=== PATIENT | male | born 1965 | race African-American/Black ===

== ENCOUNTER 2024-11-20 16:17 | Inpatient (IN) | payer OTHER ==
[~2024-11-20] VITALS: Ht 177.8 cm; Wt 116.9 kg
[2024-11-20] MEDS ORDERED: THIAMINE HCL 100 MG, FOLic ACID 5 MG/ML VIAL 1 MG, M.V.I. IV [ADULT] 10 ML in 0.9%NACL ... IV SCH (16:30)
[2024-11-20] MEDS ORDERED: PHARMACY COMMUNICATION MISC PRN ×2 (16:30→20:00)
[2024-11-20 16:42] LABS: IMMATURE GRANULOCYTE ABSOLUTE 0.02 K/uL (0-1); NUCLEATED RED BLOOD CELLS 0.0 % (0.0-0.19); PLATELET COUNT (AUTO) 170 K/uL (130-400); RED BLOOD CELL COUNT(AUTO) 5.04 MIL/uL (4.50-6.20); RED CELL DISTRIBUTION WIDTH 14.2 % (11.0-15.5); WHITE BLOOD COUNT (AUTO) 9.4 K/uL (4.8-10.8)
[2024-11-20 16:52] LABS: CREATININE 1.2 mg/dL (0.5-1.3); GLOMERULAR FILTR. RATE CALC 71 mL/min (>90); GLUCOSE,RANDOM 102 mg/dL (70-105); SODIUM SERUM 135 mmol/L (136-145); UREA NITROGEN, BLOOD 25 mg/dL (7-18)
[2024-11-20 17:14] LABS: ASPARTATE AMINOTRANSFERASE 88 U/L (10-37); TOTAL PROTEIN, SERUM 7.5 g/dL (6.0-8.3)
[2024-11-20 17:15] LABS: ALCOHOL, BLOOD < 3 mg/dL (0-10)
[2024-11-20 17:19] LABS: CREATINE KINASE, TOTAL 3765 U/L (21-232)
--- NOTE | 2024-11-20 17:19 | HMCIMG ---
EXAM: CT Head Without IV contrast. CLINICAL HISTORY: ams TECHNIQUE: Axial computed tomography images of the head/brain without intravenous contrast. COMPARISON: None provided. FINDINGS: BRAIN: No evidence of acute hemorrhage. No mass lesion. No CT evidence for acute territorial infarct. No midline shift or extra-axial collections. VENTRICLES: No hydrocephalus. ORBITS: The orbits are unremarkable. SINUSES AND MASTOIDS: The paranasal sinuses and mastoid air cells are clear. BONES: No fracture. SOFT TISSUES: Unremarkable. IMPRESSION: No acute intracranial abnormality. /[place]
[2024-11-20] MEDS ORDERED: COMPOUND IV REFRIGERATED 1 EACH IVSOLN MISC PRN (17:30)
[2024-11-20] MEDS: MULTIVITAMIN WITH MINERALS TABLET PO SCH (17:31)
--- NOTE | 2024-11-20 17:31 | ERN ---
General Chief Complaint: Other Problems Stated Complaint: SENT BY [facility] FOR THIAMINE INFUSIONS Time Seen by MD: 16:20 Source: patient History of Present Illness Initial Comments This is a 59-year-old gentleman coming in 10 by the [facility] for possible alcohol w ithdrawal. Per psychiatrist patient is to be admitted for alcohol withdrawal patient has been presenting with weakness and psychiatrist was concerned for encephalopathy secondary to Wernicke. Allergies: Coded Allergies: thioridazine (Unverified Allergy, Unknown, 11/20/24) Past Medical History Past Medical History: Diabetes-Type II, High Cholesterol, Hypertension, Schizophrenia Past Surgical History: None ROS Dictation CONSTITUTIONAL: No chills, no fever, weakness, no diaphoresis, no malaise. HEAD/FACE: No signs of trauma. EENT: No eye pain, no blurred vision, no tearing, no double vision, no ear pain, no ear discharge, no nose pain, no nasal congestion, no throat pain, no throat swelling, no mouth pain. RESPIRATORY: No cough, no orthopnea, no SOB, no stridor, no wheezing. CARDIOVASCULAR: No chest pain, no edema, no palpitations, no syncope. GASTROINTESTINAL/ABDOMINAL: No abdominal pain, no constipation, no diarrhea, no nausea, no vomiting. GENITOURINARY: No abnormal discharge, no dysuria, no frequent urination, no hematuria. No complaints of pain in the genitals. MUSCULOSKELETAL: No back pain, no gout, no joint pain, no joint swelling, no muscle pain, no muscle stiffness, no neck pain. INTEGUMENTARY: No change in color, no change in hair/nails, no dryness, no le lesa, no lumps, no rash. NEUROLOGICAL/PSYCH: No anxiety, not depressed, no emotional problem, no headache, no numbness, no pre-existing deficit, no history of seizures, no tremors, no weakness. HEMATOLOGIC/LYMPHATIC: Not anemic, no history of blood clots, no apparent bleeding, no bruising, glands not swollen. All Systems Negative, Except as Noted. Physical Exam Physical Exam Dictation VITAL SIGNS: Reviewed. GENERAL APPEARANCE: Alert, oriented x3, no acute distress, obese. HEAD AND FACE: Non-traumatic. EYES: PERRL, pink conjunctivas, eyelid no trauma, anterior chamber clear. EARS: Pinnas intact and no signs of trauma or erythema. Ear canals clear and no discharge. TMs no erythema. NOSE: No discharge, no bleeding. OROPHARYNX: Mouth normal, teeth no caries, tongue pink. Pharynx clear, no erythema. Tonsils no exudates, no abscesses noted. Mucous membrane moist. NECK: Supple, non-tender, no thyromegaly, no masses, no JVD, no bruits. BREAST: Deferred. CHEST: No tenderness, no crepitus, no paradoxical movement, no retractions. LUNGS: Clear, well-ventilated, symmetric, no rales, no wheezing, no rhonchi, no stridor, good breath sounds bilaterally. HEART: Regular rate, regular rhythm, no murmur, no gallops. VASCULAR: No peripheral edema. ABDOMEN: Soft, positive bowel sounds, nondistended, no guarding, nontender, no rebound, no masses no hepatomegaly, no splenomegaly, no Shine's sign, no hernias. RECTAL: Deferred. GENITAL: Deferred. NEUROLOGICAL: Normal speech, gross motor function intact, gross sensory function intact. MUSCULOSKELETAL: Neck nontender, full range of motion, back nontender, full range of motion. EXTREMITIES: Nontender, full range of motion. SKIN: Color pink, dry, no turgor, no rash, no lacerations, no abrasions, no contusions. LYMPHATICS: Deferred. Results Laboratory and Microbiology Lab and Micro Result Laboratory Tests Test 11/20/24 16:34 11/20/24 17:13 White Blood Count 9.4 K/uL (4.8-10.8) Red Blood Count 5.04 MIL/uL (4.50-6.20) Hemoglobin 14.4 g/dL (14.0-18.0) Hematocrit 42.6 % (42-54) Mean Corpuscular Volume 84.5 fL (79-99) Mean Corpuscular Hemoglobin 28.6 pg (27.0-33.0) Mean Corpuscular Hemoglobin Concent 33.8 g/dL (32.0-36.0) Red Cell Distribution Width 14.2 % (11.0-15.5) Platelet Count 170 K/uL (130-400) Mean Platelet Volume 10.7 fL (7.5-10.5) H Immature Granulocyte % (Auto) 0.2 % (0-1) Neutrophils (%) (Auto) 52.8 % (40.0-77.0) Lymphocytes (%) (Auto) 32.1 % (21.0-51.0) Monocytes (%) (Auto) 9.9 % (3.0-13.0) Eosinophils (%) (Auto) 4.4 % (0.0-8.0) Basophils (%) (Auto) 0.6 % (0.0-5.0) Neutrophils # (Auto) 5.0 K/uL (1.8-7.7) Lymphocytes # (Auto) 3.0 K/uL (1.0-4.8) Monocytes # (Auto) 0.9 K/uL (0.1-1.0) Eosinophils # (Auto) 0.41 K/uL (0.00-0.70) Basophils # (Auto) 0.06 K/uL (0.00-0.20) Absolute Immature Granulocyte (auto 0.02 K/uL (0-1) Nucleated Red Blood Cells 0.0 % (0.0-0.19) Sodium Level 135 mmol/L (136-145) L Potassium Level 3.8 mmol/L (3.5-5.1) Chloride Level 102 mmol/L (101-111) Carbon Dioxide Level 24 mmol/L (21-32) Blood Urea Nitrogen 25 mg/dL (7-18) H Creatinine 1.2 mg/dL (0.5-1.3) Glomerular Filtration Rate Calc 71 mL/min (>90) Random Glucose 102 mg/dL (70-105) Total Calcium 8.9 mg/dL (8.5-10.1) Magnesium Level 2.20 mg/dL (1.80-2.40) Total Bilirubin 0.4 mg/dL (0.2-1.0) Aspartate Amino Transf (AST/SGOT) 88 U/L (10-37) H Alanine Aminotransferase (ALT/SGPT) 78 U/L (12-78) Alkaline Phosphatase 68 U/L (50-136) Total Creatine Kinase 3765 U/L (21-232) *H Total Protein 7.5 g/dL (6.0-8.3) Albumin 3.6 g/dL (3.5-5.0) Lipase 50 U/L (16-77) Serum Alcohol < 3 mg/dL (0-10) Urine Color LIGHT-YELLOW (YELLOW) Urine Appearance CLEAR (CLEAR) Urine pH 5.0 (5.0-8.0) Urine Specific [place] 1.032 (1.001-1.031) Urine Protein NEGATIVE mg/dL (NEGATIVE) Urine Glucose (UA) >=1000 mg/dL (NEGATIVE) H Urine Ketones NEGATIVE mg/dL (NEGATIVE) Urine Occult Blood NEGATIVE (NEGATIVE) Urine Nitrate NEGATIVE (NEGATIVE) Urine Bilirubin NEGATIVE mg/dL (NEGATIVE) Urine Urobilinogen 0.2 mg/dL (0.2-1.0) Urine Leukocyte Esterase NEGATIVE Monserrat/uL Urine RBC 0-1 /HPF (0-1) Urine WBC 2-5 /HPF (0-1) H Urine Bacteria None /HPF (None Seen) Urine Hyaline Casts 2-5 /LPF (0-1 /LPF) H Labs Reviewed?: Yes EKG/XRAY/US/CT/MRI CT Scan Comment [id number] [address] IMAGING REPORT Signed PATIENT: SHERI GEE MR#: [id number] : 1965 SEX: M AGE: 59 LOCATION: [facility] ORDER 22 STATUS: [facility] REPORT#: [id number] SERVICE 22 REASON: ams ORDERING PHYSICIAN: MAXINE DUKE MD PROCEDURE: HEAD WO - CT HEAD/BRAIN W/O CONTRAST EXAM: CT Head Without IV contrast. CLINICAL HISTORY: ams TECHNIQUE: Axial computed tomography images of the head/brain without intravenous contrast. COMPARISON: None provided. FINDINGS: BRAIN: No evidence of acute hemorrhage. No mass lesion. No CT evidence for acute territorial infarct. No midline shift or extra-axial collections. VENTRICLES: No hydrocephalus. ORBITS: The orbits are unremarkable. SINUSES AND MASTOIDS: The paranasal sinuses and mastoid air cells are clear. BONES: No fracture. SOFT TISSUES: Unremarkable. IMPRESSION: No acute intracranial abnormality. /[place] DICTATED BY: SCOT GUZMAN MD DATE: 11/20/241817 ELECTRONICALLY SIGNED BY: SCOT GUZMAN MD DATE: 11/20/241817 [facility] MDM: Differential diagnosis: Wernicke encephalopathy, history of alcohol abuse, CK Rationale: Tests considered and ordered secondary to shared decision making include: labs, ECG and radiology Previous outside records reviewed: Old ER visits. Risk of complication and/or morbidity or mortality of patient management: None Medications-Per medication reconciliation Need for hospitalization: Patient does meet criteria for hospitalization. Need for emergency major/minor surgery: No There are no social concerns with this patient. Prescription drug management Prescriptions will include symptomatic care Patient's prior external medical records from other ER visits were reviewed by me as indicated. Prior testing and results from previous visits were reviewed. Prior tests were taken into account with medical decision making and resource utilization, independent historian/historians were used to obtain complete medical history. I independently interpreted the test that were performed, results were reviewed by me and considered findings on radiology if ordered. Medical management and examination interpretation discussions were had by me with other qualified healthcare professionals as indicated for the patient's care. Patient will be admitted under the care of hospitalist group for ongoing management. ED Course Orders Procedure Category Date Status Time Cbc With Differential LAB 11/20/24 Complete 16:21 Comprehensive LAB 11/20/24 Complete Metabolic Panel 16:21 Urinalysis Profile LAB 11/20/24 Complete 16:21 Creatine Kinase, Total LAB 11/20/24 Complete 16:21 Lipase LAB 11/20/24 Complete 16:21 Etoh Alcohol WARD 11/20/24 In Process Withdrawal Ords 16:21 Magnesium LAB 11/20/24 Complete 16:21 Alcohol, Blood LAB 11/20/24 Complete 16:21 Thiamine Hcl (Vitamin PHA 11/20/24 Complete B-1)... 16:30 Thiamine Hcl (Vitamin PHA 11/21/24 In Process B-1) 09:00 Folic Acid 1 Mg PHA 11/21/24 In Process Tablet (Folic Acid 1 09:00 Pharmacy PHA 11/20/24 Complete Communication 16:30 Use [facility] CPOE 11/20/24 Transmitted Assmt. Tool 16:21 Assess The Need For CPOE 11/20/24 Transmitted Seizure & 16:21 Vs Per Unit Routine & CPOE 11/20/24 Transmitted With 16:21 Document Etoh CPOE 11/20/24 Transmitted Withdrawal Score 16:21 Ct Head/Brain W/O CT 11/20/24 Resulted Contrast 16:23 Thiamine Hcl (Vitamin PHA 11/20/24 In Process B-1)... 17:00 Multivitamin PHA 11/20/24 In Process W-Minerals Tab 17:00 0.9%Nacl 1000ml (Ns PHA 11/20/24 Complete 1000ml) 17:30 Compound Iv PHA 11/20/24 In Process Refrigerated 17:30 Current Medications Medications (Trade) Dose Ordered Sig/Dorothea Route PRN Reason Start Time Stop Time Status Last Admin Dose Admin Folic Acid (FOLic ACID 1 MG TABLET) 1 mg DAILY PO 11/21/24 09:00 11/23/24 09:01 Multivitamins/ Minerals (Centrum) 1 tab DAILY PO 11/20/24 17:00 12/20/24 16:59 11/20/24 17:31 Pharmacy Profile Note (Pharmacy Communication) 1 each PROTOCOL PRN MISC ETOH Withdrawal Score changes 11/20/24 16:30 11/20/24 16:56 DC Sodium Chloride 1,000 ml @ 0 mls/hr ONCE ONCE IV 11/20/24 17:30 11/20/24 17:31 DC 11/20/24 17:32 Thiamine HCl (Vitamin B-1) 100 mg DAILY IM 11/21/24 09:00 11/23/24 09:01 Thiamine HCl 100 mg/Folic Acid 1 mg/Multivitamins/ Minerals 10 ml/ Sodium Chloride 1,011.2 ml @ 100 mls/ hr Q24H IV 11/20/24 16:30 11/20/24 16:33 DC Thiamine HCl 100 mg/Folic Acid 1 mg/Sodium Chloride 1,011.2 ml @ 100 mls/ hr Q24H IV 11/20/24 17:00 11/23/24 03:07 11/20/24 18:28 Vital Signs Date Time Temp Pulse Resp B/P (MAP) Pulse Ox O2 Delivery O2 Flow Rate FiO2 11/20/24 18:42 86 16 124/71 99 Room Air* 0 21 11/20/24 17:24 85 16 122/71 96 Room Air* 0 21 11/20/24 16:18 98.4 90 14 116/50 98 Room Air 0 DX & DISP Disposition: Inpatient Decision to Admit Time: 18:45 Departure Impression: Primary Impression: Wernicke encephalopathy Additional Impressions: History of alcohol abuse, Elevated CK Condition: Stable Referrals: SELF,REFERRAL (PCP) MAXINE DUKE MD Nov 20, 2024 17:31
[2024-11-20] MEDS: 0.9%NACL 1000ML 1,000 ML IV ONE (17:32)
[2024-11-20 17:35] LABS: ADD UA MICROSCOPIC YES; APPEARANCE,URINE CLEAR (CLEAR); GLUCOSE, URINE (UA) >=1000 mg/dL (NEGATIVE); LEUKOCYTE ESTERASE ,URINE NEGATIVE Leu/uL (NEGATIVE); NITRATE,URINE NEGATIVE (NEGATIVE); OCCULT BLOOD,URINE NEGATIVE (NEGATIVE)
[2024-11-20] MEDS: THIAMINE HCL 100 MG, FOLic ACID 5 MG/ML VIAL 1 MG in 0.9%NACL 1000ML 1,000 ML IV SCH (18:28)
[2024-11-20] MEDS ORDERED: DEXTROSE 50%-WATER 50 ML DISP.SYRIN IV PRN (20:00)
[2024-11-20] MEDS ORDERED: GLUCAGON 1MG KIT 1 MG ML IM PRN (20:00)
--- NOTE | 2024-11-20 20:04 | HP ---
[facility] HISTORY AND PHYSICAL Date of Service: Nov 20, 2024 Time of Service: 19:46 PCP: From [place] HISTORY OF PRESENT ILLNESS: This is a 59-year-old male with past medical history of hyperlipidemia, diabetes, schizophrenia and alcoholism who [facility] and reportedly psychiatrist was concerned and recommended admission for encephalopathy secondary to Wernicke syndrome. Seen and examined the patient in the ED awake,alert and coherent,appears comfortable and following commands and answering questions appropriately.Patient appears calm and comfortable,no tremors noted.Patient denies fever,cough,seizure ,chest pain,palpitation and shortness of breath.Patient reports he was at the house and he was supposed to have a meeting with the Team at a certain program in the [place] and he was surprised that he has to be transferred and be scheduled to attend today he said.The only problem he has right now is that he has muscle pain in his shoulders and some lower back pain he said. Latest vital signs temperature 98.4, heart rate 86, BP 124/71 saturation 99% on room air. Labs: CBC unremarkable. Sodium 135, BUN 25 AST 88, total CK 3765. Urine is significant for glucose, urine WBC 2-5 hyaline casts 2-5. CT head without contrast result revealed no acute intracranial abnormality. While in the ER patient received banana bag and 1 L NS bolus. ER called and recommended to admit the patient. REVIEW OF SYSTEMS CONSTITUTIONAL: Denies fevers, chills, or night sweats. No unintentional weight loss reported. NEUROLOGICAL: Denies headache, amaurosis fugax, motor weakness, sensory deficit, vertigo/spinning sensation, gait abnormalities, or tremors. ENT: No hearing loss, otalgia, otorrhea, rhinitis, rhinorrhea, hoarseness, or sore throat. CARDIOVASCULAR: Denies any exertional angina, dyspnea on exertion, orthopnea, paroxysmal nocturnal dyspnea, palpitations, life-threatening arrhythmias, claudication. PULMONARY: Denies any shortness of breath, cough, phlegm/sputum, hemoptysis, pleuritic chest pain. SLEEP: Denies morning headaches, daytime somnolence or napping. Denies difficulty falling asleep, staying asleep, waking from sleep. Denies knowledge of snoring. GASTROINTESTINAL: Denies any type of dysphagia to either liquids or solids. Denies nausea, vomiting, pyrosis, early satiety, abdominal pain, diarrhea, co nstipation, or changes in stool consistency or caliber. Denies coffee-ground emesis, hematemesis, hematochezia, or melanotic stools. GENITOURINARY: Denies frequency, urgency, nocturia, hematuria or incontinence (Storage/Irritative symptoms.) Low urinary stream, straining to void, urinary intermittency or hesitancy, splitting of the voiding stream, terminal dribbling. ENDOCRINOLOGIC: Denies polyuria, polydipsia, polyphagia or heat/cold intolerances. HEMATOLOGIC: Denies thrombophilia/previous clots, or coagulopathy/bleeding disorders. ONCOLOGIC: Denies personal history of malignancy. DERMATOLOGIC: Denies rashes or pruritus. PSYCHIATRIC: Denies any suicidal or homicidal ideation. Denies hallucinations. PAST MEDICAL HISTORY: [Diabetes, hyperlipidemia, schizophrenia and alcoholism ] PAST SURGICAL HISTORY: [ Left eye surgery at 9 years old due to astigmatism ] PAST SOCIAL HISTORY: [Patient lives alone. Patient admits to smoking one pack of cigarettes per day and drinks six beers per week denies recreational drug use. ] FAMILY HISTORY: [ Noncontributory ] Coded Allergies: thioridazine (Unverified Allergy, Unknown, 11/20/24) PHYSICAL EXAM GENERAL APPEARANCE: The patient is awake, alert, and oriented, in no acute cardiopulmonary distress. NEUROLOGICAL: Cranial nerves II-XII grossly intact. Motor is 5/5 in bilateral upper and lower extremities proximal to distal. No sensory deficits. HEENT: Face is symmetric. Pupils are equal and reactive. Extraocular movements are intact. NECK: Supple. No JVD. No thyromegaly. No submental, submandibular, pre-/po stauricular, occipital or supraclavicular lymphadenopathy. CHEST: Normal chest expansion. No Telemetry. LUNGS: Absence of any rales, rhonchi or any wheezing. CARDIOVASCULAR: Regular. S1 and S2 normal. No appreciable rubs, murmurs or gallops. ABDOMEN: Soft, nontender, and nondistended. There is no rebound, voluntary guarding, or rigidity. : Deferred. No Lambert. EXTREMITIES: Non-edematous and not cyanotic. No clubbing. Good capillary refill. SKIN: No skin breakdown. Vital Sign (Last 24 Hours) 11/20/24 11/20/24 16:18 18:42 Temp 98.4 Pulse 86 Resp 16 B/P (MAP) 124/71 Pulse Ox 99 O2 Delivery Room Air* O2 Flow Rate 0 FiO2 21 LABS: Laboratory: Test 11/20/24 17:13 11/20/24 16:34 Range/Units Urine Color LIGHT-YELLOW YELLOW Urine Appearance CLEAR CLEAR Urine pH 5.0 5.0-8.0 Urine Specific [place] 1.032 H 1.001-1.031 Urine Protein NEGATIVE NEGATIVE mg/dL Urine Glucose (UA) >=1000 H NEGATIVE mg/dL Urine Ketones NEGATIVE NEGATIVE mg/dL Urine Occult Blood NEGATIVE NEGATIVE Urine Nitrate NEGATIVE NEGATIVE Urine Bilirubin NEGATIVE NEGATIVE mg/dL Urine Urobilinogen 0.2 0.2-1.0 mg/dL Urine Leukocyte Esterase NEGATIVE NEGATIVE Monserrat/uL Urine RBC 0-1 0-1 /HPF Urine WBC 2-5 H 0-1 /HPF Urine Bacteria None None Seen /HPF Urine Hyaline Casts 2-5 H 0-1 /LPF /LPF White Blood Count 9.4 4.8-10.8 K/uL Red Blood Count 5.04 4.50-6.20 MIL/uL Hemoglobin 14.4 14.0-18.0 g/dL Hematocrit 42.6 42-54 % Mean Corpuscular Volume 84.5 79-99 fL Mean Corpuscular Hemoglobin 28.6 27.0-33.0 pg Mean Corpuscular Hemoglobin Concent 33.8 32.0-36.0 g/dL Red Cell Distribution Width 14.2 11.0-15.5 % Platelet Count 170 130-400 K/uL Mean Platelet Volume 10.7 H 7.5-10.5 fL Immature Granulocyte % (Auto) 0.2 0-1 % Neutrophils (%) (Auto) 52.8 40.0-77.0 % Lymphocytes (%) (Auto) 32.1 21.0-51.0 % Monocytes (%) (Auto) 9.9 3.0-13.0 % Eosinophils (%) (Auto) 4.4 0.0-8.0 % Basophils (%) (Auto) 0.6 0.0-5.0 % Neutrophils # (Auto) 5.0 1.8-7.7 K/uL Lymphocytes # (Auto) 3.0 1.0-4.8 K/uL Monocytes # (Auto) 0.9 0.1-1.0 K/uL Eosinophils # (Auto) 0.41 0.00-0.70 K/uL Basophils # (Auto) 0.06 0.00-0.20 K/uL Absolute Immature Granulocyte (auto 0.02 0-1 K/uL Nucleated Red Blood Cells 0.0 0.0-0.19 % Sodium Level 135 L 136-145 mmol/L Potassium Level 3.8 3.5-5.1 mmol/L Chloride Level 102 101-111 mmol/L Carbon Dioxide Level 24 21-32 mmol/L Blood Urea Nitrogen 25 H 7-18 mg/dL Creatinine 1.2 0.5-1.3 mg/dL Glomerular Filtration Rate Calc 71 >90 mL/min Random Glucose 102 70-105 mg/dL Total Calcium 8.9 8.5-10.1 mg/dL Magnesium Level 2.20 1.80-2.40 mg/dL Total Bilirubin 0.4 0.2-1.0 mg/dL Aspartate Amino Transf (AST/SGOT) 88 H 10-37 U/L Alanine Aminotransferase (ALT/SGPT) 78 12-78 U/L Alkaline Phosphatase 68 50-136 U/L Total Creatine Kinase 3765 *H 21-232 U/L Total Protein 7.5 6.0-8.3 g/dL Albumin 3.6 3.5-5.0 g/dL Lipase 50 16-77 U/L Serum Alcohol < 3 0-10 mg/dL Current Medications Medications (Trade) Dose Ordered Sig/Dorothea Route PRN Reason Start Time Stop Time Status Last Admin Dose Admin Folic Acid (FOLic ACID 1 MG TABLET) 1 mg DAILY PO 11/21/24 09:00 11/23/24 09:01 Multivitamins/ Minerals (Centrum) 1 tab DAILY PO 11/20/24 17:00 12/20/24 16:59 11/20/24 17:31 1 TAB Pharmacy Profile Note (Pharmacy Communication) 1 each PROTOCOL PRN MISC ETOH Withdrawal Score changes 11/20/24 16:30 11/20/24 16:56 DC Thiamine HCl (Vitamin B-1) 100 mg DAILY IM 11/21/24 09:00 11/23/24 09:01 Thiamine HCl 100 mg/Folic Acid 1 mg/Multivitamins/ Minerals 10 ml/ Sodium Chloride 1,011.2 ml @ 100 mls/ hr Q24H IV 9/15/25 16:30 11/20/24 16:33 DC Thiamine HCl 100 mg/Folic Acid 1 mg/Sodium Chloride 1,011.2 ml @ 100 mls/ hr Q24H IV 11/20/24 17:00 11/23/24 03:07 11/20/24 18:28 100 MLS/HR DIAGNOSTICS / RADIOLOGY: [ ] ASSESSMENT: Suspected Wernicke Encephalopathy POA Mild hyponatremia POA Mild rhabdomyolysis POA Possible alcohol withdrawal secondary to alcoholism POA Nicotine dependence POA Schizophrenia POA Diabetes POA Hyperlipidemia POA Morbid obesity POA PLAN: We will admit patient in medical surgical We will start on consistent carb diet We will start NS @ 100 ml / hr x2 bags and re evaluate We will monitor for alcohol withdrawal and start on CIWA protocol We will start on Protonix 40 mg IV daily for GI prophylaxis We will replace electrolytes as needed per protocol We will start on insulin sliding scale AC & HS with hypoglycemia protocol We will add prn medication for fever,pain,cough , nausea and vomiting We will reconcile home meds once medlist available Fall precaution Counseled on smoking and alcohol use cessation We will request labs in am Further orders to follow depending on above results Case discussed with attending physician and came up with above treatment and plan of care. ADVANCED CARE PLANNING 1. Which of the following were discussed? Hospice Care - No Therapeutic options - Yes Advance Directives - No Other discussions - 2. Discussed with who? Patient 3. Voluntary nature of this service was explained to the patient? Yes 4. Amount of time spent - _22min 5. Reviewed by Physician? (if this service was performed by NPP) Yes Patient seen and examined by me. Agree with note by NETWORK ENGINEER SEE ADDITIONAL ORDERS PER CHART DISCUSSED WITH NURSING STAFF TONY JOINER EPIC PRELUDE ANALYST Nov 20, 2024 20:04
[2024-11-20 20:06] VITALS: BP 150/78; PULSE 73; RESP 19; TEMP 98.7
[2024-11-20 22:06] VITALS: BP 148/76; PULSE 75; RESP 20; TEMP 98.8
[2024-11-20 23:00] VITALS: BP 127/78; PULSE 79; RESP 20; TEMP 98
[2024-11-21 02:55] VITALS: PULSE 78; RESP 15; O2SAT 98
[2024-11-21 03:54] VITALS: BP 118/69; PULSE 77; RESP 20; TEMP 98.3
[2024-11-21 04:30] LABS: IMMATURE GRANULOCYTE ABSOLUTE 0.03 K/uL (0-1); NUCLEATED RED BLOOD CELLS 0.0 % (0.0-0.19); PLATELET COUNT (AUTO) 154 K/uL (130-400); RED BLOOD CELL COUNT(AUTO) 5.00 MIL/uL (4.50-6.20); RED CELL DISTRIBUTION WIDTH 14.2 % (11.0-15.5); WHITE BLOOD COUNT (AUTO) 8.1 K/uL (4.8-10.8)
[2024-11-21 05:14] LABS: ASPARTATE AMINOTRANSFERASE 76.0 U/L (10-37); CREATININE 1.1 mg/dL (0.5-1.3); GLOMERULAR FILTR. RATE CALC 78.0 mL/min (>90); GLUCOSE,RANDOM 103.0 mg/dL (70-105); PHOSPHORUS 4.3 mg/dL (2.5-4.9); SODIUM SERUM 139.0 mmol/L (136-145); TOTAL PROTEIN, SERUM 7.3 g/dL (6.0-8.3); UREA NITROGEN, BLOOD 19.0 mg/dL (7-18)
[2024-11-21 05:17] LABS: CREATINE KINASE, TOTAL 3321.0 U/L (21-232)
[2024-11-21] MEDS: THIAMINE HCL 100 MG, FOLic ACID 5 MG/ML VIAL 1 MG in 0.9%NACL 1000ML 1,000 ML IV SCH (06:18)
[2024-11-21 08:00] VITALS: BP 142/73; PULSE 69; RESP 18; TEMP 97.8; O2SAT 99
[2024-11-21] MEDS: THIAMINE HCL 100 MG/ML 2ML VIAL IM SCH (08:47)
[2024-11-21] MEDS: MULTIVITAMIN TABLET PO SCH (08:48)
[2024-11-21] MEDS ORDERED: THIAMINE HCL 100 MG/ML 2ML VIAL IM SCH (09:00)
--- NOTE | 2024-11-21 10:42 | NUR ---
DCP:HOME Pt currently lives alone in his home. Pt states that he only has a DPAP at home and no provider or home health services. pt states that he is able to complete ADLs independently. PCP is Lisa Lopez at the [facility] and uses the [facility] for any RX needs. At [place] pt will want to go home and family can assist with transportation. Addendum: 11/21/24 at 1043 by JENA HERNANDEZ SS Amended: Links added.
[2024-11-21 12:00] VITALS: BP 113/60; PULSE 72; RESP 18; TEMP 97.3
--- NOTE | 2024-11-21 12:59 | NUR ---
Substance abuse Pt states that pt is [facility].
[2024-11-21] MEDS ORDERED: 0.9%NACL 1000ML 1,000 ML IV SCH (13:30)
[2024-11-21] MEDS: 0.9%NACL 1000ML 1,000 ML IV ONE (14:47)
--- NOTE | 2024-11-21 15:04 | NUR ---
[facility] LIST Called [facility] left message for [facility] nurse to call charge nurse back regarding veterans updated medications list, pending call back at this time.
[2024-11-21 15:06] LABS: % IRON SATURATION 43.2 % (30-44); IRON, SERUM 132.0 mcg/dL (65-175)
--- NOTE | 2024-11-21 15:59 | NUR ---
SPOKE TO THE PATIENTS NURSE FROM [facility] ABOUT FAXING CURRENT MEDICATIONS THE PATIENT TAKES. PENDING TO BE FAXED.
[2024-11-21 16:00] VITALS: BP 145/92; PULSE 66; RESP 18; TEMP 97.4
--- NOTE | 2024-11-21 18:00 | DS ---
Discharge Summary Assessment/Plan: ASSESSMENT: Suspected Wernicke Encephalopathy POA Mild hyponatremia POA Mild rhabdomyolysis POA Possible alcohol withdrawal secondary to alcoholism POA Nicotine dependence POA Schizophrenia POA Diabetes POA Hyperlipidemia POA Morbid obesity POA PLAN: We will admit patient in medical surgical We will start on consistent carb diet We will start NS @ 100 ml / hr x2 bags and re evaluate We will monitor for alcohol withdrawal and start on CIWA protocol We will start on Protonix 40 mg IV daily for GI prophylaxis We will replace electrolytes as needed per protocol We will start on insulin sliding scale AC & HS with hypoglycemia protocol We will add prn medication for fever,pain,cough , nausea and vomiting We will reconcile home meds once medlist available Fall precaution Counseled on smoking and alcohol use cessation We will request labs in am Further orders to follow depending on above results Case discussed with attending physician and came up with above treatment and plan of care. Time spent arranging discharge: 31-60 minutes NATHAN PAVON MD Nov 21, 2024 18:00
[2024-11-21 20:00] VITALS: BP 121/73; PULSE 68; RESP 16; TEMP 98.4
--- NOTE | 2024-11-21 20:15 | NUR ---
Discharge instructions given/reinforced @ this time, as well as to f[facility] after [facility];verbalized understanding.
--- NOTE | 2024-11-21 20:20 | NUR ---
Pt. 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
== END 2024-11-21 20:22 | disposition home or self-care (01) | DRG 641 ==
LOC: EDH 16:17 → EDHIP 19:48 → 3AH 22:58
PROVIDERS: ADMIT Hospitalist; ATTEND Hospitalist
DX: E51.2 Wernicke's encephalopathy (principal); F10.239 Alcohol dependence with withdrawal, unspecified; E87.1 Hypo-osmolality and hyponatremia; M62.82 Rhabdomyolysis; Z68.41 Body mass index [BMI] 40.0-44.9, adult; F20.9 Schizophrenia, unspecified; E11.9 Type 2 diabetes mellitus without complications; E78.5 Hyperlipidemia, unspecified; E66.01 Morbid (severe) obesity due to excess calories; F17.210 Nicotine dependence, cigarettes, uncomplicated; E78.00 Pure hypercholesterolemia, unspecified; I10 Essential (primary) hypertension; Z79.899 Other long term (current) drug therapy; Z79.01 Long term (current) use of anticoagulants; Z68.37 Body mass index [BMI] 37.0-37.9, adult
CPT/HCPCS: 36415; 70450; 80053; 81001; 82550; 82948; 83540; 83550; 83690; 83735; 84100; 85025; 94660; 96365; 99285; G0378; J3411; J3490; J7030